=== PATIENT | female | born 1955 | race Caucasian/White ===

== ENCOUNTER → 2021-07-16 11:40 | Outpatient (BNVA) | payer OTHER, SELFPAY | PROVIDERS: PCP Nurse Practitioner Family; Visit Provider Nurse Practitioner | DX: J02.9 Acute pharyngitis, unspecified (principal) | CPT/HCPCS: 87071; 87880 ==

== ENCOUNTER → 2023-06-07 08:36 | Outpatient (BNVA) | payer OTHER, SELFPAY | PROVIDERS: PCP Nurse Practitioner Family; Visit Provider Nurse Practitioner Family | DX: K57.90 Diverticulosis of intestine, part unspecified, without perforation or abscess without bleeding (principal); K62.5 Hemorrhage of anus and rectum; R10.11 Right upper quadrant pain | CPT/HCPCS: 80053; 85025 ==

== ENCOUNTER 2023-06-18 15:19 | Outpatient (CLI) | payer OTHER, SELFPAY ==
--- NOTE | 2023-06-18 15:30 | CT_ITS ---
WS: [id number] CT ABDOMEN PELVIS TECHNIQUE: Contrast-enhanced CT of the abdomen and pelvis with coronal and sagittal reformatted image s. CLINICAL INFORMATION: R10.11 - Right upper quadrant pain COMPARISON: None. DLP: 294.[address] scans at [facility] use at least one of these dose optimization techniques: automated e xposure control; mA and/or kV adjustment per patient size (includes targeted exams where dose is matc hed to clinical indication); or iterative reconstruction. FINDINGS: Diffuse fatty filtration of the liver. Normal portal vein and splenic vein. Normal spleen. Normal GE junction. Lung bases are well aerated. Normal pancreatic parenchymal enhancement. Gallbladder appears normal. Adrenal glands are normal. Normal renal parenchymal enhancement. No hydronephrosis. Small bi lateral renal cysts. Celiac and SMA are patent. Normal caliber abdominal aorta. Aortic calcification. Sigmoid diverticulosis. No evidence of acute di verticulitis. Normal appendix in the RIGHT lower quadrant. Disc space narrowing worse at L4-L5 and L5 -S1. No evidence of small or large bowel obstruction. No other acute findings. IMPRESSION: 1. Mild diffuse fatty filtration of the liver. 2. Gallbladder appears normal. 3. Small bilateral renal cysts. 4. Sigmoid diverticulosis. No evidence of acute diverticulitis. 5. Normal appendix in the RIGHT lower quadrant. 6. Disc space narrowing worse at L4-L5 and L5-S1.
[2023-06-18] MEDS: iohexol 350 mg/mL 500 mL Btl (per mL) IV (15:35)
[2023-06-18] MEDS: iohexol 350 mg/mL 500 mL Btl (per mL) PO (15:35)
== END 2023-06-18 15:20 | disposition home or self-care (01) ==
PROVIDERS: PCP Nurse Practitioner Family; Visit Provider Nurse Practitioner Family
DX: R10.11 Right upper quadrant pain (principal); K57.30 Diverticulosis of large intestine without perforation or abscess without bleeding; K62.5 Hemorrhage of anus and rectum; K76.0 Fatty (change of) liver, not elsewhere classified; N28.1 Cyst of kidney, acquired
CPT/HCPCS: 74177; 80053; 85025; Q9967

== ENCOUNTER 2024-08-01 09:37 | Inpatient (IN) | payer MEDICARE, OTHER, SELFPAY ==
--- NOTE | 2024-08-01 09:48 | CT_ITS ---
WS: [id number] CT ABDOMEN AND PELVIS WITH CONTRAST HISTORY: abd pain TECHNIQUE: Imaging performed of the abdomen and pelvis with IV contrast. Single phase imaging of the abdomen. Coronal and sagittal reformats are submitted. All CT scans at [facility] use at [address] one of these dose optimization techniques: automated exposure control; mA and/or kV adjustment per patient size (includes targeted exams where dose is matched to clinical indication); or iterative re construction. IV CONTRAST: Omnipaque 350; 100 mL IV. Oral contrast: No DLP: 382.50 mGy.cm COMPARISON: 06/18/2023 Lower thorax: Lung bases are clear. Heart is normal size. Small hiatal hernia. Liver/biliary system: Normal size with no intrahepatic dilatation. Gallbladder: Normal. No gallstones or wall thickening. No pericholecystic fluid. Pancreas: Normal size pancreas and pancreatic duct. No adjacent inflammation. Spleen: Normal size spleen. No mass or infarct. Adrenal glands: Normal. Right kidney: Normal size kidney. Stable cortical hypodensities. No obstruction. Left kidney: Normal size. No obstruction. Stable too small to characterize cortical hypodensities. Aorta: Moderate atherosclerosis with no aneurysm. Lymphadenopathy: None. Free fluid: None. GI tract: Stomach is nondistended. No small bowel obstruction. Normal appendix. Numerous diverticula throughout the entire colon. Colon is very tortuous. Mild luminal narrowing with wall thickening in t he sigmoid. Numerous diverticula through the sigmoid colon. Some of these diverticula are very large. Abdominal wall: Unremarkable abdominal wall. No hernia. Pelvis: No free fluid or adenopathy within the pelvis. Bones: No destructive bone lesions. CT/CT abdomen pelvis w con* [id number] IMPRESSION: 1. Extensive juares diverticulosis. More advanced diverticular disease in the sig moid colon. No evidence for acute diverticulitis or obstruction. 2. Normal appendix. 3. No renal obstruction. 4. No GI tract perforation or free air. 5. No ascites.
--- NOTE | 2024-08-01 09:49 | ED_ITS ---
HPI - GI Bleed 2 General: Chief complaint: General Medical Stated complaint: rectal bleeding Time Seen by Provider: 08/01/24 09:48 History of Present Illness: 69-year-old female presents emergency ro om with complaint of rectal bleeding for going the last 2 days. She has had lower GI bleed in the past actually 1 episode a few years back required hospitalizations with transfusion of blood. She is states she has had colonoscopy 6 to 8 years ago was told it was completely normal. She has not had any fever sweats or chills. No previous abdominal surgeries. She has known diverticulosis. Associated symptoms: Denies abdominal pain, chills, fever(s) or rash Related Data Home Medications Medication Instructions Recorded Confirmed aspirin 81 mg tablet,delayed 81 mg PO DAILY 11/21/20 08/01/24 release Allergies Allergy/AdvReac Type Severity Reaction Status Date / Time No Known Allergies Allergy Unverified 06/07/23 08:57 Review of Systems 2 Const: Denies: fever(s) or chills Card: Denies: chest pain Resp: Denies: dyspnea GI: Reports: hematochezia; Denies: abdominal pain : Denies: dysuria, urinary frequency or urinary urgency Musc: Denies: neck pain or back pain Skin/Breast: Denies: rash PFSH ED 2 PFSH: Medical History MVP (mitral valve prolapse) Breast changes, fibrocystic Diverticulosis Surgical History History of colonoscopy 2016 in [place] History of pelvic surgery Scope endometriosis age 39 Family History Mother Hypertension Grandmother Diverticula of colon Social History Smoking and tobacco/nicotine status: current every day tobacco/nicotine user e- cigarettes E-Cigarette Details: vaporizer device and with nicotine Second hand smoke exposure: No Alcohol intake: current Alcohol intake frequency: 0-2 Drinks per Day Alcohol type: wine Substance/Drug Use: never Adopted: No Caregiver/support person: No Lives independently: Yes Household members: spouse Housing: House Marital status: Number of children: 0 Highest education level completed: Some College, No Degree service: No Current occupational status: retired Pets and animals: No Physical Exam 2 Const: GENERAL APPEARANCE: cooperative ORIENTATION/CONSCIOUSNESS: Yes awake, Yes oriented to person, Yes oriented to place and Yes oriented to time HENMT: COMMON NORMALS: normocephalic, atraumatic and hearing grossly normal bilaterally HEAD & SCALP: normocephalic and atraumatic Resp: COMMON NORMALS: normal respiratory effort, No retractions, No use of accessory muscles and clear to auscultation bilaterally AUSCULTATION: clear to auscultation bilaterally Cardio: COMMON NORMALS: regular rate, regular rhythm and No murmurs present (Cardio) RATE: regular rate RHYTHM: regular rhythm GI: COMMON NORMALS: Soft to palpation and No hepatosplenomegaly present A USCULTATION: Yes normoactive bowel sounds PALPATION: Yes Soft to palpation, No Tenderness to palpation present (GI), No Guarding due to palpation present (GI) and Yes No hepatosplenomegaly present OTHER: On rectal exam there are some hemorrhoidal tags no active bleeding no bright red blood per rectum there is little dried blood around the rectum. Extremity: COMMON NORMALS: normal to inspection, capillary refill normal, no clubbing, cyanosis or edema, no calf tenderness and no pedal edema Neuro: SENSORIUM/ORIENTATION: Yes oriented to person, Yes oriented to place and Yes oriented to time Skin: COMMON NORMALS: no rashes or lesions noted GENERAL SKIN EXAM: no rashes or lesions noted Course 2 Vital Signs: Vital signs: Vital Signs Temperature 98.0 F 08/01/24 09:50 Pulse Rate 91 08/01/24 13:20 Respiratory Rate 16 08/01/24 09:50 Blood Pressure 123/79 08/01/24 13:20 Pulse Oximetry 96 08/01/24 13:20 Oxygen Delivery Me thod Room Air 08/01/24 13:20 MDM - GI Bleed Medical Decision Making Stop passing your further since arriving here. Her hemoglobin is down to 10 3. Most recent one prior to that was 12 a however that was 14 months ago. She was a little bit tachycardic. CT did not show any acute diverticulitis or any other significant finding she has diverticulosis. Suspect she may have little subclinical diverticulitis and/or bleeding from the diverticuli. Will start her on Cipro and Flagyl prophylactically discussed with hospitalist will place on observation monitor vitals and get serial hemoglobins. Given the fact that in the past she has bled substantially from the lower GI source and required hospitalization and transfusion concerned with safety of letting her go home since she is already tachycardic. Medical Records I reviewed the patient's medical records. Lab Data I reviewed the patient's lab results. 08/01/24 09:56 08/01/24 09:56 Radiology Impressions Abdomen/Pelvis CT 08/01/24 09:48 IMPRESSION: 1. Extensive juares diverticulosis. More advanced diverticular disease in the sigmoid colon. No evidence for acute diverticulitis or obstruction. 2. Normal appendix. 3. No renal obstruction. 4. No GI tract perforation or free air. 5. No ascites. Laboratory Results WBC 6.22 10^3/uL (3.29-11.43) 08/01/24 09:56 RBC 3.10 10^6/uL (3.85-5.65) L 08/01/24 09:56 Hgb 10.30 g/dL (11.27-16.99) L 08/01/24 09:56 Hct 31.8 % (36-47) L 08/01/24 09:56 MCV 102.6 fl (85-98) H 08/01/24 09:56 MCH 33.2 pg (27-33) H 08/01/24 09:56 MCHC 32.4 g/dL (30-55) 08/01/24 09:56 RDW 12.0 % (12.1-15.1) L 08/01/24 09:56 Plt Count 358 10^3/cmm (157-399) 08/01/24 09:56 MPV 9.4 fL (7.4-10.4) 08/01/24 09:56 Neut % (Auto) 59.7 % 08/01/24 09:56 Lymph % (Auto) 30.4 % 08/01/24 09:56 [place] % (Auto) 8.4 % 08/01/24 09:56 Eos % (Auto) 0.8 % 08/01/24 09:56 Baso % (Auto) 0.5 % 08/01/24 09:56 Neut # (Auto) 3.72 10^3/uL (1.8-7.7) 08/01/24 09:56 Lymph # (Auto) 1.9 10^3/uL (0.8-4.8) 08/01/24 09:56 Marshall # (Auto) 0.5 10^3/uL (0.2-0.9) 08/01/24 09:56 Eos # (Auto) 0.1 10^3/uL (0.0-0.8) 08/01/24 09:56 Baso # (Auto) 0.0 10^3/uL (0.0-0.1) 08/01/24 09:56 Nucleated RBC % (auto) 0 % 08/01/24 09:56 Nucleated RBCs # 0.0 /100WBC 08/01/24 09:56 PT 12.70 SECONDS (12.1-14.9) 08/01/24 09:56 INR 0.93 (0.8-1.2) 08/01/24 09:56 APTT 27.4 SECONDS (23.9-36.7) 08/01/24 09:56 Sodium 137 mmol/L (136-145) 08/01/24 09:56 Potassium 3.6 mmol/L (3.5-5.1) 08/01/24 09:56 Chloride 101 mmol/L (98-107) 08/01/24 09:56 Carbon Dioxide 25 mmol/L (22-29) 08/01/24 09:56 Anion Gap 14.6 (5-19) 08/01/24 09:56 BUN 13 mg/dL (8-23) 08/01/24 09:56 Creatinine 0.5 mg/dL (0.5-0.9) 08/01/24 09:56 GFR Calculation 122.0 mL/min (90-130) 08/01/24 09:56 Glucose 99 mg/dL (65-115) 08/01/24 09:56 Calculated Osmolality 284 mOsm/kg (285-295) L 08/01/24 09:56 Calcium 9.1 mg/dL (8.5-10.5) 08/01/24 09:56 Total Bilirubin 0.2 mg/dL (0.15-1.2) 08/01/24 09:56 AST 23 U/L (0-32) 08/01/24 09:56 ALT 24 U/L (0-33) 08/01/24 09:56 Alkaline Phosphatase 71 U/L (35-105) 08/01/24 09:56 Total Protein 7.1 g/dL (6.6-8.7) 08/01/24 09:56 Albumin 4.2 g/dL (3.5-5.2) 08/01/24 09:56 Globulin 2.9 g/dL (1.3-4.6) 08/01/24 09:56 Urine Color Yellow (Yellow) 08/01/24 12:30 Urine Appearance Clear (CLEAR) 08/01/24 12:30 Urine pH 5.0 (5-7) 08/01/24 12:30 Ur Specific [place] 1.027 (1.005-1.030) 08/01/24 12:30 Urine Protein Negative (Negative) 08/01/24 12:30 Urine Glucose (UA) Negative (Normal) 08/01/24 12:30 Urine Ketones Trace (Negative) 08/01/24 12:30 Urine Blood Negative (Negative) 08/01/24 12:30 Urine Nitrate Negative (Negative) 08/01/24 12:30 Urine Bilirubin Negative (Negative) 08/01/24 12:30 Urine Urobilinogen 0.2 mg/dL (Negative) 08/01/24 12:30 Ur Leukocyte Esterase Negative (Negative) 08/01/24 12:30 Urine RBC 0-2 /hpf (0-2) 08/01/24 12:30 Urine WBC 0-5 /hpf (0-5) 08/01/24 12:30 Ur Squamous Epith Cells 0-5 /hpf (0-5) 08/01/24 12:30 Amorphous Sediment Not Reportable 08/01/24 12:30 Urine Bacteria None seen /hpf (NONE) 08/01/24 12:30 Hyaline Casts 0-4 /lpf H 08/01/24 12:30 All radiology interpretation(s) finalized by discharge Discharge Plan Discharge Patient Disposition: Placed in Observation Clinical Impression: Acute lower gastrointestinal bleeding, Diverticulosis, MVP (mitral valve prolapse) Condition: Stable Prescriptions: No Action aspirin 81 mg tablet,delayed release (DR/EC) 81 mg PO DAILY Referrals: Maty Garcia FNP-C [Primary Care Provider] - Coding Level of Care Code ED Wiring Technician for Cher Fan
[2024-08-01 09:50] VITALS: BP 158/82; PULSE 102; RESP 16; TEMP 36.7; O2SAT 100
[2024-08-01 10:08] LABS: Basophils % 0.5 %; Eosinophils # 0.1 10^3/uL (0.0-0.8); Eosinophils % 0.8 %; Hematocrit 31.8 % (36-47); Lymphocytes # 1.9 10^3/uL (0.8-4.8); Lymphocytes % 30.4 %; Mean Corpuscular HGB Conc 32.4 g/dL (30-55); Mean Corpuscular Hemoglobin 33.2 pg (27-33); Mean Corpuscular Volume 102.6 fl (85-98); Mean Platelet Volume 9.4 fL (7.4-10.4); Monocytes # 0.5 10^3/uL (0.2-0.9); Monocytes % 8.4 %; Neutrophils # 3.72 10^3/uL (1.8-7.7); Neutrophils % 59.7 %; Nucleated Red Blood Cells % 0 %; Platelet Count 358 10^3/cmm (157-399); White Blood Count 6.22 10^3/uL (3.29-11.43)
[2024-08-01 10:20] LABS: INR 0.93 (0.8-1.2)
[2024-08-01 10:21] LABS: Partial Thromboplastin Time 27.4 SECONDS (23.9-36.7)
[2024-08-01 10:28] LABS: Alanine Aminotransferase 24 U/L (0-33); Albumin Level 4.2 g/dL (3.5-5.2); Alkaline Phosphatase 71 U/L (35-105); Anion Gap 14.6 (5-19); Aspartate Amino Transferase 23 U/L (0-32); Blood Urea Nitrogen 13 mg/dL (8-23); Calcium 9.1 mg/dL (8.5-10.5); Carbon Dioxide 25 mmol/L (22-29); Chloride 101 mmol/L (98-107); Creatinine Clr Calc Pharmacy 62.0159; Globulin 2.9 g/dL (1.3-4.6); Glucose 99 mg/dL (65-115); Osmolality Calculated 284 mOsm/kg (285-295); Potassium 3.6 mmol/L (3.5-5.1); Sodium 137 mmol/L (136-145); Total Bilirubin 0.2 mg/dL (0.15-1.2); Total Protein 7.1 g/dL (6.6-8.7)
[2024-08-01] MEDS: iohexol 350 mg/mL 500 mL Btl (per mL) IV (11:29)
[2024-08-01 12:47] LABS: Bilirubin Urine Negative (Negative); Blood Urine Negative (Negative); Glucose Urine UA Negative (Normal); Ketones Urine Trace (Negative); Leukocyte Esterase Urine Negative (Negative); Nitrate Urine Negative (Negative); Protein Urine Negative (Negative); Specific Gravity, Urine 1.027 (1.005-1.030); Urine Appearance Clear (CLEAR); Urine Color Yellow (Yellow); Urobilinogen Urine 0.2 mg/dL (Negative)
[2024-08-01 12:49] LABS: Add Urine Microscopic? YES; Bacteria Urine None Seen /hpf; Hyaline Casts Urine 0-4 /lpf; RBC Urine 0-2 /hpf (0-2); Squamous Epithelial Cell Urine 0-5 /hpf (0-5); WBC Urine 0-5 /hpf (0-5)
[2024-08-01 12:55] LABS: Add Urine Culture? No
[2024-08-01 13:20] VITALS: BP 123/79; PULSE 91; O2SAT 96
--- NOTE | 2024-08-01 13:25 | P.HP_ITS ---
Providers/Chief Complaint 2 Primary Care Provider: LIANNA Kaur Chief Complaint: rectal bleeding History of Present Illness Judith Reagan is a 69 year old female with no significant past medical history presented to the hospital with blood in stool. She states that the hematochezia started Wednesday morning and she had gone to the bathroom probably more than a dozen times, Wednesday went 4 times and today went twice. She feels it starting to slow down. She has no history of hemorrhoids however was told in the ER today that she does have hemorrhoids. She states she had a colonoscopy 8 years ago. She is not on any home medications at home. She is having a lot of clots upon defecation. Denies nausea vomiting diarrhea. Does have a history of endometriosis surgery number of years ago. Denies vaginal bleeding. Does complain of mild lightheadedness when she stood up to go to the bathroom yesterday. Has never had a cholecystectomy. Does complain of mild right upper quadrant pain. Medications/Allergies Home Medications Medication Instructions Recorded Confirmed Last Taken Type aspirin 81 mg tablet,delayed 81 mg PO DAILY 11/21/20 08/01/24 Unknown History release Allergies Allergy/AdvReac Type Severity Reaction Status Date / Time No Known Allergies Allergy Unverified 06/07/23 08:57 PFSH Acute 2 PFSH: Medical History MVP (mitral valve prolapse) Breast changes, fibrocystic Diverticulosis Surgical History History of colonoscopy 2016 in [place] History of pelvic surgery Scope endometriosis age 39 Family History Mother Hypertension Grandmother Diverticula of colon Social History Smoking and tobacco/nicotine status: current every day tobacco/nicotine user e- cigarettes E-Cigarette Details: vaporizer device and with nicotine Second hand smoke exposure: No Alcohol intake: current Alcohol intake frequency: 0-2 Drinks per Day Alcohol type: wine Substance/Drug Use: never Adopted: No Caregiver/support person: No Lives independently: Yes Household members: spouse Housing: House Marital status: Number of children: 0 Highest education level completed: Some College, No Degree service: No Current occupational status: retired Pets and animals: No Vitals/I&O/Wt Last Vital Signs Temp 98.0 F 08/01/24 09:50 Pulse 91 08/01/24 13:20 Resp 16 08/01/24 09:50 BP 123/79 08/01/24 13:20 Pulse Ox 96 08/01/24 13:20 O2 Del Method Room Air 08/01/24 13:20 Weight last 48 hrs Weight 68.039 kg Physical Exam 2 Narrative: General: Alert oriented x3, patient seen sitting up in bed appearing comfortable. HEENT: Normocephalic, atraumatic, EOMI, room air, at bedside. Cardio: Regular rate rhythm, normal S1-S2, Respiratory: Good bilateral air entry, no wheezes no rhonchi appreciated GI: Abdomen soft, nontender, nondistended, bowel sounds +, Lee sign negative. Behavior: Appropriate and cooperative Extremities: Pulses 2+, no edema, no cyanosis Data 08/01/24 09:56 08/01/24 09:56 A&P Assessment and plan (1) Diverticulosis: (2) Acute lower gastrointestinal bleeding: (3) Diverticular hemorrhage: Plan #Hematochezia #Diverticular bleed #History of diverticulosis, diverticulitis #History of hemorrhoids? ? Admit to hospital for further monitoring. ? Check CBC every 12 hours ? Placed on clear liquid diet ? States bleeding is starting to slow down. Was given ceftriaxone and Flagyl one-time in ER. Will hold off on further antibiotics at this time. ? Discussed with patient and regarding the possibility of arterial embolization if bleed does not stop. ? Will monitor for now. If warranted will consult general surgery. ? Check ultrasound abdomen to evaluate gallbladder for gallstones. ? Check CBC CMP in AM. ? Baseline hemoglobin 12. At this time 10.3. Full code DVT prophylaxis: Heparin subcu twice daily Attestations 2 Medical Necessity Statement*: Observation admission for diverticular bleeding. Diagnoses Diverticulosis K57.90 Acute lower gastrointestinal bleeding K92.2 Diverticular hemorrhage K57.31
--- NOTE | 2024-08-01 13:28 | US_ITS ---
WS: [id number] RIGHT UPPER QUADRANT ULTRASOUND HISTORY: abd pain, r/o gallstones COMPARISON: None available. Liver: 14.0 cm in length. Normal size liver and echogenicity. No bile duct dilatation or mass. Portal Vein: Normal hepatopetal flow with monophasic waveform. Gallbladder: Normally distended gallbladder with no stones or wall thickening. CBD: 0.4 cm Pancreas: Not visualized. Right kidney: 9.6 cm in length. Normal size and echogenicity. No hydronephrosis or mass. Aorta and IVC: Unremarkable abdominal aorta and IVC. No ascites. US/US abdomen limited [id number] IMPRESSION: Negative gallbladder. No cholelithiasis.
[2024-08-01] MEDS: ciprofloxacin 400 MG/200 ML PREMIX 200 MG IV (13:49)
[2024-08-01] MEDS: heparin 5,000 unit/mL INJ 1 mL 5000 UNIT SUBCUT (13:49)
[2024-08-01 13:57] LABS: Basophils % 0.4 %; Eosinophils # 0.1 10^3/uL (0.0-0.8); Eosinophils % 1.2 %; Hematocrit 28.9 % (36-47); Lymphocytes # 1.8 10^3/uL (0.8-4.8); Lymphocytes % 26.9 %; Mean Corpuscular HGB Conc 33.6 g/dL (30-55); Mean Corpuscular Hemoglobin 33.9 pg (27-33); Mean Platelet Volume 9.4 fL (7.4-10.4); Monocytes # 0.5 10^3/uL (0.2-0.9); Monocytes % 6.8 %; Neutrophils # 4.39 10^3/uL (1.8-7.7); Neutrophils % 64.4 %; Nucleated Red Blood Cells % 0 %; Platelet Count 361 10^3/cmm (157-399); Red Blood Count 2.86 10^6/uL (3.85-5.65); Red Cell Distribution Width 11.8 % (12.1-15.1); White Blood Count 6.81 10^3/uL (3.29-11.43)
[2024-08-01 14:34] VITALS: BMI 23.8
[2024-08-01 14:48] VITALS: BP 136/79; PULSE 88; RESP 16; O2SAT 99
[2024-08-01] MEDS: metroNIDAZOLE IV 500 MG/100 ML PREMIX 100 MG IV (15:36)
[2024-08-01 16:00] VITALS: BP 147/78; PULSE 94; RESP 19; TEMP 36.8; O2SAT 98
[2024-08-01 18:31] LABS: Basophils % 0.5 %; Eosinophils # 0.1 10^3/uL (0.0-0.8); Eosinophils % 1.2 %; Hematocrit 27.6 % (36-47); Lymphocytes # 1.9 10^3/uL (0.8-4.8); Lymphocytes % 34.3 %; Mean Corpuscular HGB Conc 32.6 g/dL (30-55); Mean Corpuscular Hemoglobin 32.7 pg (27-33); Mean Corpuscular Volume 100.4 fl (85-98); Mean Platelet Volume 9.6 fL (7.4-10.4); Monocytes # 0.4 10^3/uL (0.2-0.9); Monocytes % 7.6 %; Neutrophils # 3.16 10^3/uL (1.8-7.7); Neutrophils % 56.2 %; Nucleated Red Blood Cells % 0 %; Platelet Count 342 10^3/cmm (157-399); Red Blood Count 2.75 10^6/uL (3.85-5.65); Red Cell Distribution Width 11.9 % (12.1-15.1); White Blood Count 5.63 10^3/uL (3.29-11.43)
[2024-08-01 20:00] VITALS: BP 121/74; PULSE 77; RESP 18; TEMP 36.7; O2SAT 95
[2024-08-02] VITALS: BP 104/64; PULSE 90; RESP 17; TEMP 36.6; O2SAT 90
[2024-08-02 01:20] LABS: Basophils % 0.8 %; Eosinophils # 0.1 10^3/uL (0.0-0.8); Eosinophils % 2.3 %; Hematocrit 26.5 % (36-47); Lymphocytes # 1.9 10^3/uL (0.8-4.8); Lymphocytes % 35.6 %; Mean Corpuscular HGB Conc 33.2 g/dL (30-55); Mean Corpuscular Hemoglobin 33.5 pg (27-33); Mean Corpuscular Volume 100.8 fl (85-98); Mean Platelet Volume 9.5 fL (7.4-10.4); Monocytes # 0.5 10^3/uL (0.2-0.9); Monocytes % 9.5 %; Neutrophils # 2.71 10^3/uL (1.8-7.7); Neutrophils % 51.6 %; Nucleated Red Blood Cells % 0 %; Platelet Count 333 10^3/cmm (157-399); Red Blood Count 2.63 10^6/uL (3.85-5.65); Red Cell Distribution Width 11.9 % (12.1-15.1); White Blood Count 5.25 10^3/uL (3.29-11.43)
[2024-08-02 04:00] VITALS: BP 98/63; PULSE 88; RESP 17; TEMP 36.8; O2SAT 97
[2024-08-02 05:56] LABS: Basophils % 0.6 %; Eosinophils # 0.1 10^3/uL (0.0-0.8); Eosinophils % 2.7 %; Lymphocytes # 1.7 10^3/uL (0.8-4.8); Lymphocytes % 36.2 %; Mean Corpuscular Hemoglobin 33.3 pg (27-33); Mean Corpuscular Volume 101.1 fl (85-98); Mean Platelet Volume 9.6 fL (7.4-10.4); Monocytes # 0.5 10^3/uL (0.2-0.9); Monocytes % 11.2 %; Neutrophils # 2.32 10^3/uL (1.8-7.7); Neutrophils % 48.9 %; Nucleated Red Blood Cells % 0 %; Platelet Count 347 10^3/cmm (157-399); Red Blood Count 2.67 10^6/uL (3.85-5.65); Red Cell Distribution Width 11.9 % (12.1-15.1); White Blood Count 4.75 10^3/uL (3.29-11.43)
[2024-08-02 06:13] LABS: Alanine Aminotransferase 20 U/L (0-33); Albumin Level 3.7 g/dL (3.5-5.2); Alkaline Phosphatase 61 U/L (35-105); Anion Gap 13.8 (5-19); Aspartate Amino Transferase 23 U/L (0-32); Blood Urea Nitrogen 14 mg/dL (8-23); Calcium 8.1 mg/dL (8.5-10.5); Carbon Dioxide 25 mmol/L (22-29); Chloride 110 mmol/L (98-107); Creatinine Clr Calc Pharmacy 60.2471; Globulin 2.1 g/dL (1.3-4.6); Glomerular Filtration Rate 157.8 mL/min (90-130); Glucose 99 mg/dL (65-115); Magnesium 2.2 mg/dL (1.7-2.3); Osmolality Calculated 301 mOsm/kg (285-295); Potassium 3.8 mmol/L (3.5-5.1); Sodium 145 mmol/L (136-145); Total Bilirubin 0.2 mg/dL (0.15-1.2); Total Protein 5.8 g/dL (6.6-8.7)
[2024-08-02 07:20] LABS: INR 0.98 (0.8-1.2)
[2024-08-02 07:33] VITALS: BP 121/76; PULSE 81; RESP 16; TEMP 37; O2SAT 96
[2024-08-02] MEDS: acetaminophen 325 mg Tablet 650 MG PO (09:44)
--- NOTE | 2024-08-02 10:26 | PC.CHAP ---
Pastoral Care Encounter/Spiritual Assessment Type of Contact [] Declined senior cytotechnologist visit [] Patient/Family/Request visit [] Outpatient visit [] Follow-up visit [] Physician referral [] Code/Alert [x] Routine visit [] Staff referral [] Actively dying [] Patient sleeping [] Family support [] [] Out of room [] Palliative care [] [] Receiving care in room [] Pre-surgical visit [] Trauma [] Long length of stay [] ICU visit [] Other: Relational/Emotional Strength [x] Patient feels connected with others/family/visitors/staff [] Distress [] Loneliness/isolation [] Abandonment Spirituality of Patient [x] Person of Jessica [] Attends Yarsani of their Jessica [x] Believes in Prayer [] Reads Bible or Mandaeism materials [] There are Spiritual issues to be addressed Plate Conditioner Interventions [x] Prayer [x] Active listening [] Non-anxious presence [x] Spiritual/emotional support [] Crisis/trauma care [] Spiritual counseling [] Bereavement support [] Provided bereavement packet [] Provided Bible/devotional materials [] Provided toy/stuffed animal, coloring book to patient or family member [] Provided Communion [] Anointing/[place] [] Salvation [x] Completed spiritual assessment [] Other: Impact on Illness or Injury [] Angry [] Fearful [] Anxious [] Often cries [] Exhaustion [] Unable to work [] Unable to attend zoroastrian [] Unable to walk/stand [] Unable to read [] Unable to drive [] Unable to eat/drink [] Unable to sleep [] Unable to be with family [] Patient intubated [] Other: Summary Time spent with patient 5 min
[2024-08-02 11:25] VITALS: BP 132/81; PULSE 86; RESP 16; TEMP 36.7; O2SAT 99
--- NOTE | 2024-08-02 13:44 | P.PN_ITS ---
Subjective 2 Subjective: seen this morning, has not had bm since admission. says abdominal pain ruq is improved us abdomen r/o gall stones hb down to 8.9 Vitals/I&O/Wt Last Vital Signs Temp 98.1 F 08/02/24 11:25 Pulse 86 08/02/24 11:25 Resp 16 08/02/24 11:25 BP 132/81 08/02/24 11:25 Pulse Ox 99 08/02/24 11:25 O2 Del Method Room Air 08/02/24 11:25 08/01/24 08/02/24 08/02/24 22:59 06:59 14:59 Intake Total 660 / 660 Output Total 900 / 900 Balance 660 / 660 -900 / -900 Weight last 48 hrs Weight 63.758 kg Weight 63.049 kg Weight 68.039 kg Physical Exam 2 Narrative: General: Alert oriented x3, patient seen sitting up in bed appearing comfortable. HEENT: Normocephalic, atraumatic, EOMI, room air, at bedside. Cardio: Regular rate rhythm, normal S1-S2, Respiratory: Good bilateral air entry, no wheezes no rhonchi appreciated GI: Abdomen soft, nontender, nondistended, bowel sounds +, Lee sign negative. Behavior: Appropriate and cooperative Extremities: Pulses 2+, no edema, no cyanosis Data 08/02/24 05:09 08/02/24 05:09 A&P Assessment and plan (1) Diverticulosis: (2) Acute lower gastrointestinal bleeding: (3) Diverticular hemorrhage: Plan #Hematochezia #Diverticular bleed #History of diverticulosis, diverticulitis #History of hemorrhoids? ? Admit to hospital for further monitoring. ? Check CBC every 12 hours ? advance to gi soft diet. ? States bleeding is starting to slow down. Was given ceftriaxone and Flagyl one-time in ER. Will hold off on further antibiotics at this time. ? Discussed with patient and regarding the possibility of arterial embolization if bleed does not stop. ? Will monitor for now. consult gen surgery. ? Check ultrasound abdomen to evaluate gallbladder for gallstones. ? Check CBC CMP in AM. ? Baseline hemoglobin 12. At this time 8.9 - continue to monitor hb and for bleeding in hospital Full code DVT prophylaxis: scds Attestations 2 Medical Necessity Statement*: will need hospitalization to monitor for bleeding Diagnoses Diverticulosis K57.90 Acute lower gastrointestinal bleeding K92.2 Diverticular hemorrhage K57.31
[2024-08-02 14:17] LABS: Basophils % 0.7 %; Eosinophils # 0.1 10^3/uL (0.0-0.8); Eosinophils % 1.8 %; Hematocrit 30.3 % (36-47); Lymphocytes # 2.1 10^3/uL (0.8-4.8); Lymphocytes % 37.6 %; Mean Corpuscular Hemoglobin 33.9 pg (27-33); Mean Corpuscular Volume 105.9 fl (85-98); Mean Platelet Volume 9.3 fL (7.4-10.4); Monocytes # 0.5 10^3/uL (0.2-0.9); Monocytes % 8.7 %; Neutrophils # 2.88 10^3/uL (1.8-7.7); Nucleated Red Blood Cells % 0 %; Platelet Count 355 10^3/cmm (157-399); Red Blood Count 2.86 10^6/uL (3.85-5.65); Red Cell Distribution Width 11.8 % (12.1-15.1); White Blood Count 5.64 10^3/uL (3.29-11.43)
--- NOTE | 2024-08-02 15:25 | P.CONIM_ITS ---
Providers/Reason For Consult 2 Consulting Physician/Specialty*: Dr. Seven Brambila DO/General Surgery Reason for Consult*: GI bleed Attending Physician: Mariya Leonard MD Primary Care Provider: LIANNA Kaur History of Present Illness History of Present Illness Judith Reagan is a 69 year old female who presented to the hospital with a 3-day history of blood per rectum. She had a colonoscopy 8 years ago in which diverticulosis only was diagnosed. She reports that she is having some crampy lower abdominal pain that does not radiate. Palpation can make the pain worse. Nothing seems to make the pain better. She denies any nausea or emesis. The blood was red and maroon with some blood clots. She denies any nausea or emesis. Review of Systems 2 General: Reports: 10 or more systems reviewed and unremarkable except in HPI and below Medications/Allergies Home Medications Medication Instructions Recorded Confirmed Last Taken Type aspirin 81 mg tablet,delayed 81 mg PO DAILY 11/21/20 08/01/24 Unknown History release Allergies Allergy/AdvReac Type Severity Reaction Status Date / Time No Known Allergies Allergy Unverified 06/07/23 08:57 PFSH Acute 2 PFSH: Medical History MVP (mitral valve prolapse) Breast changes, fibrocystic Diverticulosis Surgical History History of colonoscopy 2016 in [place] History of pelvic surgery Scope endometriosis age 39 Family History Mother Hypertension Grandmother Diverticula of colon Social History Smoking and tobacco/nicotine status: current every day tobacco/nicotine user e- cigarettes E-Cigarette Details: vaporizer device and with nicotine Second hand smoke exposure: No Alcohol intake: current Alcohol intake frequency: 0-2 Drinks per Day Alcohol type: wine Substance/Drug Use: never Adopted: No Caregiver/support person: No Lives independently: Yes Household members: spouse Housing: House Marital status: Number of children: 0 Highest education level completed: Some College, No Degree service: No Current occupational status: retired Pets and animals: No Vitals/I&O/Wt Last Vital Signs Temp 97.9 F 08/02/24 20:00 Pulse 85 08/02/24 20:00 Resp 16 08/02/24 20:00 BP 133/80 08/02/24 20:00 Pulse Ox 98 08/02/24 20:00 O2 Del Method Room Air 08/02/24 20:00 08/02/24 08/02/24 08/02/24 06:59 14:59 22:59 Intake Total 240 / 240 Output Total 900 / 900 Balance -900 / -900 240 / -660 Weight last 48 hrs Weight 140 lb 9 oz Weight 139 lb Weight 150 lb Physical Exam 2 Narrative: General : Patient is well developed , no acute distress, oriented x3 Head : Normal cephalic, a-traumatic. Ears : Pinnae and external canal are normal. Hearing is normal. Eyes : PERRLA, Sclera and injection are normal. No conjunctival discharge. Nose : Mucous membranes are without erythema. Throat : buccal mucosa is normal, gums are without significant recession or hypertrophy. Lungs : Equal chest rise bilaterally, no use of accessory muscles, trachea is midline. Cor : Rate and rhythm are normal. Abdomen : Soft, ND, NT, no g/r/m Extremities : No edema, no cyanosis or clubbing, dorsalis pedis pulses are present bilaterally, non-tender to palpation of calves. Upper extremities are normal bilaterally. Back : non-tender to palpation, no CVA tenderness. Neuro : CN II - XII intact, Upper and lower extremities have equal and full strength Data 08/03/24 01:49 08/03/24 01:49 A&P Assessment and plan (1) Diverticular hemorrhage: Plan Looks like the acute bleeding has stopped and her hemoglobin has stabilized Soft diet She does not have any further bleeding and tolerates a soft diet she can be discharged from surgical standpoint. Follow-up in my office in 1 to 2 weeks for scheduling of outpatient EGD and colonoscopy Medical management per hospitalist Coding Level of Care Code 57828 Diagnoses Diverticular hemorrhage K57.31
[2024-08-02 15:44] VITALS: BP 153/87; PULSE 82; RESP 15; TEMP 36.8; O2SAT 98
[2024-08-02 20:00] VITALS: BP 133/80; PULSE 85; RESP 16; TEMP 36.6; O2SAT 98
[2024-08-03] VITALS: BP 123/73; PULSE 75; RESP 16; TEMP 36.7; O2SAT 96
[2024-08-03 01:59] LABS: Basophils % 0.6 %; Eosinophils # 0.2 10^3/uL (0.0-0.8); Eosinophils % 3.9 %; Hematocrit 26.3 % (36-47); Lymphocytes # 1.7 10^3/uL (0.8-4.8); Lymphocytes % 31.4 %; Mean Corpuscular HGB Conc 32.7 g/dL (30-55); Mean Corpuscular Hemoglobin 32.8 pg (27-33); Mean Corpuscular Volume 100.4 fl (85-98); Monocytes # 0.5 10^3/uL (0.2-0.9); Monocytes % 9.7 %; Neutrophils # 2.95 10^3/uL (1.8-7.7); Nucleated Red Blood Cells % 0 %; Platelet Count 332 10^3/cmm (157-399); Red Blood Count 2.62 10^6/uL (3.85-5.65); Red Cell Distribution Width 11.9 % (12.1-15.1); White Blood Count 5.45 10^3/uL (3.29-11.43)
[2024-08-03 02:20] LABS: Anion Gap 11.5 (5-19); Blood Urea Nitrogen 12 mg/dL (8-23); Calcium 8.3 mg/dL (8.5-10.5); Carbon Dioxide 28 mmol/L (22-29); Chloride 106 mmol/L (98-107); Creatinine Clr Calc Pharmacy 60.2471; Glomerular Filtration Rate 157.8 mL/min (90-130); Glucose 102 mg/dL (65-115); Osmolality Calculated 294 mOsm/kg (285-295); Potassium 3.5 mmol/L (3.5-5.1); Sodium 142 mmol/L (136-145)
[2024-08-03 04:00] VITALS: BP 96/63; PULSE 80; RESP 16; TEMP 36.8; O2SAT 95
[2024-08-03 07:51] VITALS: BP 134/74; PULSE 122; RESP 16; TEMP 36.8; O2SAT 97
--- NOTE | 2024-08-03 09:52 | PM.DCS ---
Discharge Providers Date of Admission: 08/02/24 10:36 Date of Discharge: August 03, 2024 Attending Provider at Admission: Mariya Leonard MD Attending Provider at Discharge: Mariya Leonard MD Primary Care Provider: LIANNA Kaur Diagnoses at Discharge Discharge Diagnosis (1) Diverticulosis: Status: Acute (2) Acute lower gastrointestinal bleeding: Status: Acute (3) Diverticular hemorrhage: Status: Acute Reason for Visit Reason for Visit: rectal bleeding Brief History: Judith Reagan is a 69 year old female with no significant past medical history presented to the hospital with blood in stool. She states that the hematochezia started Wednesday morning and she had gone to the bathroom probably more than a dozen times, Wednesday went 4 times and today went twice. She feels it starting to slow down. She has no history of hemorrhoids however was told in the ER today that she does have hemorrhoids. She states she had a colonoscopy 8 years ago. She is not on any home medications at home. She is having a lot of clots upon defecation. Denies nausea vomiting diarrhea. Does have a history of endometriosis surgery number of years ago. Denies vaginal bleeding. Does complain of mild lightheadedness when she stood up to go to the bathroom yesterday. Has never had a cholecystectomy. Does complain of mild right upper quadrant pain. Hospital Course Hospital Course Patient was admitted and monitored for further rectal bleeding. She was kept on clear liquids initially. Slowly advance to a GI soft diet. Patient did experience 1 more bowel movement which did have small amount of hematochezia. But mostly was brown stool. She did not have any further bowel movements. She was seen by general surgery and was recommended to have an EGD colonoscopy outpatient. Hemoglobin remained stable during hospitalization. She was discharged home in stable condition at this point. Was given a repeat CBC to do as an outpatient. She was asked to come back to the hospital should she experience any more blood in stool. Abdominal pain also resolved soon after admission. Gallbladder ultrasound was negative. CT abdomen pelvis did show numerous diverticuli but no evidence of diverticulitis. Patient instructed to hold aspirin at discharge till seen by primary care doctor. Physical Exam Narrative: General: Alert oriented x3, patient seen sitting up in bed appearing comfortable. HEENT: Normocephalic, atraumatic, EOMI, room air, at bedside. Cardio: Regular rate rhythm, normal S1-S2, Respiratory: Good bilateral air entry, no wheezes no rhonchi appreciated GI: Abdomen soft, nontender, nondistended, bowel sounds +, Lee sign negative. Behavior: Appropriate and cooperative Extremities: Pulses 2+, no edema, no cyanosis Discharge Data Studies Completed and Pending Completed Studies During Hospitalization Category Date Time Status CT abdomen pelvis w con* [id number] Stat Cat Scan 08/01/24 09:48 Completed US abdomen limited [id number] Stat Ultrasound 08/01/24 13:28 Completed Pending at discharge Category Date Time Status CBC Auto Diff [Complete Blood Count w/Auto] Q12H Lab 08/03/24 13:25 Ordered CBC Auto Diff [Complete Blood Count w/Auto] Q12H Lab 08/04/24 01:25 Ordered Radiology Impressions Abdomen/Pelvis CT 08/01/24 09:48 IMPRESSION: 1. Extensive juares diverticulosis. More advanced diverticular disease in the sigmoid colon. No evidence for acute diverticulitis or obstruction. 2. Normal appendix. 3. No renal obstruction. 4. No GI tract perforation or free air. 5. No ascites. Abdomen Ultrasound 08/01/24 13:28 IMPRESSION: Negative gallbladder. No cholelithiasis. Laboratory Results WBC 5.45 10^3/uL (3.29-11.43) 08/03/24 01:49 RBC 2.62 10^6/uL (3.85-5.65) L 08/03/24 01:49 Hgb 8.60 g/dL (11.27-16.99) L 08/03/24 01:49 Hct 26.3 % (36-47) L 08/03/24 01:49 MCV 100.4 fl (85-98) H D 08/03/24 01:49 MCH 32.8 pg (27-33) 08/03/24 01:49 MCHC 32.7 g/dL (30-55) 08/03/24 01:49 RDW 11.9 % (12.1-15.1) L 08/03/24 01:49 Plt Count 332 10^3/cmm (157-399) 08/03/24 01:49 MPV 9.0 fL (7.4-10.4) 08/03/24 01:49 Neut % (Auto) 54.0 % 08/03/24 01:49 Lymph % (Auto) 31.4 % 08/03/24 01:49 Turner % (Auto) 9.7 % 08/03/24 01:49 Eos % (Auto) 3.9 % 08/03/24 01:49 Baso % (Auto) 0.6 % 08/03/24 01:49 Neut # (Auto) 2.95 10^3/uL (1.8-7.7) 08/03/24 01:49 Lymph # (Auto) 1.7 10^3/uL (0.8-4.8) 08/03/24 01:49 Turner # (Auto) 0.5 10^3/uL (0.2-0.9) 08/03/24 01:49 Eos # (Auto) 0.2 10^3/uL (0.0-0.8) 08/03/24 01:49 Baso # (Auto) 0.0 10^3/uL (0.0-0.1) 08/03/24 01:49 Nucleated RBC % (auto) 0 % 08/03/24 01:49 Nucleated RBCs # 0.0 /100WBC 08/03/24 01:49 PT 13.30 SECONDS (12.1-14.9) 08/02/24 06:52 INR 0.98 (0.8-1.2) 08/02/24 06:52 APTT 27.4 SECONDS (23.9-36.7) 08/01/24 09:56 Sodium 142 mmol/L (136-145) 08/03/24 01:49 Potassium 3.5 mmol/L (3.5-5.1) 08/03/24 01:49 Chloride 106 mmol/L (98-107) 08/03/24 01:49 Carbon Dioxide 28 mmol/L (22-29) 08/03/24 01:49 Anion Gap 11.5 (5-19) 08/03/24 01:49 BUN 12 mg/dL (8-23) 08/03/24 01:49 Creatinine 0.4 mg/dL (0.5-0.9) L 08/03/24 01:49 GFR Calculation 157.8 mL/min (90-130) H 08/03/24 01:49 Glucose 102 mg/dL (65-115) 08/03/24 01:49 Calculated Osmolality 294 mOsm/kg (285-295) 08/03/24 01:49 Calcium 8.3 mg/dL (8.5-10.5) L 08/03/24 01:49 Magnesium 2.2 mg/dL (1.7-2.3) 08/02/24 05:09 Total Bilirubin 0.2 mg/dL (0.15-1.2) 08/02/24 05:09 AST 23 U/L (0-32) 08/02/24 05:09 ALT 20 U/L (0-33) 08/02/24 05:09 Alkaline Phosphatase 61 U/L (35-105) 08/02/24 05:09 Total Protein 5.8 g/dL (6.6-8.7) L 08/02/24 05:09 Albumin 3.7 g/dL (3.5-5.2) 08/02/24 05:09 Globulin 2.1 g/dL (1.3-4.6) 08/02/24 05:09 Urine Color Yellow (Yellow) 08/01/24 12:30 Urine Appearance Clear (CLEAR) 08/01/24 12:30 Urine pH 5.0 (5-7) 08/01/24 12:30 Ur Specific [place] 1.027 (1.005-1.030) 08/01/24 12:30 Urine Protein Negative (Negative) 08/01/24 12:30 Urine Glucose (UA) Negative (Normal) 08/01/24 12:30 Urine Ketones Trace (Negative) 08/01/24 12:30 Urine Blood Negative (Negative) 08/01/24 12:30 Urine Nitrate Negative (Negative) 08/01/24 12:30 Urine Bilirubin Negative (Negative) 08/01/24 12:30 Urine Urobilinogen 0.2 mg/dL (Negative) 08/01/24 12:30 Ur Leukocyte Esterase Negative (Negative) 08/01/24 12:30 Urine RBC 0-2 /hpf (0-2) 08/01/24 12:30 Urine WBC 0-5 /hpf (0-5) 08/01/24 12:30 Ur Squamous Epith Cells 0-5 /hpf (0-5) 08/01/24 12:30 Amorphous Sediment Not Reportable 08/01/24 12:30 Urine Bacteria None seen /hpf (NONE) 08/01/24 12:30 Hyaline Casts 0-4 /lpf H 08/01/24 12:30 Vitals Last Vital Signs Temp 98.2 F 08/03/24 07:51 Pulse 122 H 08/03/24 07:51 Resp 16 08/03/24 07:51 BP 134/74 08/03/24 07:51 Pulse Ox 97 08/03/24 07:51 O2 Del Method Room Air 08/03/24 07:51 Discharge Plan Discharge Patient Disposition: Home Condition: Stable Prescriptions: Held aspirin 81 mg tablet,delayed release (DR/EC) 81 mg PO DAILY Hold Instructions: hold till seen by pcp Discharge Orders: Discharge Order (Routine); Ordered 08/03/24 Ordered By: Mariya Leonard Other Ambulatory Orders: Complete Blood Count w/Auto (Routine) Timeframe: 3 Days Location: Determined by Patient Ordered By: Mariya Leonard Referrals: Seven Brambila DO [Physician] - 08/10/24 9:20 am (EGD + COLONOSCOPY ) Maty Garcia FNP-C [Primary Care Provider] - 4-7 days (We have notified your physician's clinic of the need for a follow-up appointment to be scheduled. If you have not heard from them within the next 2 business days, please call them directly. ) Discharge Diet: GI Soft Discharge Activity: Resume usual activity Patient Instructions: Gastrointestinal Bleeding (DC), Opioid Safety Activity Restrictions/Additional Instructions: Please return to ER if you experience any more blood in stool. Follow up with Dr. Brambila to have your EGD and Colonoscopy scheduled. Discharge Attestations Time Spent in Discharge Care*: less than 30 min Quality Metrics Clinical Quality Measures [ No reported AMI, CVA or VTE this stay] Coding Level of Care Code Acute Code for Chg Fwd Diagnoses Diverticulosis K57.90 Acute lower gastrointestinal bleeding K92.2 Diverticular hemorrhage K57.31
[2024-08-03 11:15] VITALS: BP 124/74; PULSE 80; RESP 15; TEMP 37; O2SAT 94
== END 2024-08-03 11:45 | disposition home or self-care (01) | DRG 379 ==
LOC: ER 13:33 → MEDSURG 14:30
PROVIDERS: Admitting Provider Internal Medicine; Emergency Provider Family Medicine; PCP Nurse Practitioner Family; Visit Provider Internal Medicine
DX: K57.31 Diverticulosis of large intestine without perforation or abscess with bleeding (principal); K64.9 Unspecified hemorrhoids; I34.1 Nonrheumatic mitral (valve) prolapse; N60.19 Diffuse cystic mastopathy of unspecified breast; F17.290 Nicotine dependence, other tobacco product, uncomplicated
CPT/HCPCS: 36415; 74177; 76705; 80048; 80053; 81001; 83735; 85025; 85610; 85730; 96365; 96367; 96372; 96375; 99285; G0378; J0744; J1644; J3490

== ENCOUNTER → 2024-08-10 09:20 | Outpatient (BNVA) | payer MEDICARE, OTHER, SELFPAY | PROVIDERS: PCP Nurse Practitioner Family; Visit Provider Surgery | DX: Z09 Encounter for follow-up examination after completed treatment for conditions other than malignant neoplasm; K92.2 Gastrointestinal hemorrhage, unspecified; K21.9 Gastro-esophageal reflux disease without esophagitis | CPT/HCPCS: 99204; 99214 ==